=== PATIENT | female | born 1990 | race Hispanic/Latino ===

== ENCOUNTER 2018-06-07 02:44 | Emergency (ER) | payer OTHER, MEDICAID ==
[2018-06-07 03:06] VITALS: BP 117/66
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
== END 2018-06-07 08:50 ==
LOC: EDBD → ED 02:44
DX: M54.5 Low back pain (principal); Z53.21 Procedure and treatment not carried out due to patient leaving prior to being seen by health care provider
CPT/HCPCS: 36415; 70450; 70486; 72100; 72125; 84703; 99284